=== PATIENT | female | born 1985 | race Caucasian/White ===

== ENCOUNTER 2019-12-13 16:51 | Emergency (ER) | payer MEDICAID ==
[~2019-12-13] VITALS: Ht 162.6 cm; Wt 74.1 kg
[2019-12-13 17:06] VITALS: Ht 162.6 cm; Wt 74.1 kg
[2019-12-13] MEDS ORDERED: VIBRAMYCIN 100100 MG PO (18:20)
[2019-12-13] MEDS ORDERED: BACLOFEN20 M1 PO (18:20)
[2019-12-13] MEDS ORDERED: VOLTAREN75 MG PO (18:20)
== END 2019-12-14 07:54 | disposition home or self-care (01) ==
LOC: D.ER 16:51
DX: M25.511 Pain in right shoulder (principal); L03.119 Cellulitis of unspecified part of limb; Z86.73 Personal history of transient ischemic attack (TIA), and cerebral infarction without residual deficits; E11.9 Type 2 diabetes mellitus without complications; I10 Essential (primary) hypertension